=== PATIENT | male | born 1995 | race Caucasian/White ===

== ENCOUNTER 2018-01-29 09:05 | Emergency (ER) | payer OTHER ==
[~2018-01-29] VITALS: Ht 180.3 cm; Wt 65.8 kg
--- NOTE | 2018-01-29 09:11 | NUR ---
PATIENT TO ED DT RIGHT FOOT PAIN, 5/10, ACHING, NON RADIATING SP PLAYING FOOTBALL. PATIENT REMAINS AMBULATORY. NO SWELLING NOTED. NOTED WITH SLIGHT DISCOLORATON.
--- NOTE | 2018-01-29 09:11 | NUR ---
PATIENT TO ED DT RIGHT FOOT PAIN, 5/10, ACHING, NON RADIATING SP PLAYING FOOTBALL. PATIENT REMAINS AMBULATORY. NO SWELLING NOTED. NOTED WITH SLIGHT DISCOLORATION AND BRUISING ON RIGHT BIG TOE.
--- NOTE | 2018-01-29 09:18 | NUR ---
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
[2018-01-29] MEDS ORDERED: IBUPROFEN 600 MG TABLET PO ONE ×2 (09:42→10:00)
[2018-01-29 09:48] VITALS: BP 124/76
--- NOTE | 2018-01-29 09:50 | NUR ---
Patient discharged to home in stable condition. Written and verbal after care instructions given. Patient verbalizes understanding of instruction.
== END 2018-01-29 09:50 | disposition home or self-care (01) ==
LOC: ER 09:06
DX: S90.31XA Contusion of right foot, initial encounter (principal); W21.01XA Struck by football, initial encounter; Y93.61 Activity, american tackle football; Y92.89 Other specified places as the place of occurrence of the external cause; Y99.8 Other external cause status
CPT/HCPCS: 73630-TC; A4606; Z7610